=== PATIENT | male | born 2000 | race Caucasian/White ===

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

== ENCOUNTER 2022-01-29 16:43 | Emergency (ER) | payer SELFPAY ==
[2022-01-29 16:45] VITALS: BP 123/73; PULSE 75; RESP 18; TEMP 36.3; O2SAT 98
--- NOTE | 2022-01-29 17:08 | ED.GENADULT ---
HPI - General Adult General Chief complaint: Unspecified Stated complaint: sore throat Time Seen by Provider: 01/29/22 16:50 Source: RN notes reviewed History of Present Illness HPI narrative: Patient presents emergency department from home for sore throat. Patient states has sore throat for the past 5 days. Patient states is painful to swallow he denies any fevers or chills, rhinorrhea, ear pain, cough, abdominal pain nausea vomiting or any other symptoms. States he has been taking ibuprofen for the pain at home but is not taking today patient does note some swelling over the left side of his neck just underneath his jaw Related Data Allergies Allergy/AdvReac Type Severity Reaction Status Date / Time No Known Allergies Allergy Verified 01/19/22 09:14 Review of Systems Review of Systems: Gen.: Denies fevers or chills ENT: See HPI Respiratory: Denies shortness of breath or cough CV: Denies chest pain or palpitations GI: Denies abdominal pain nausea, emesis or diarrhea Musculoskeletal: Denies back pain or muscle pain Neuro: Denies numbness, tingling, weakness or focal weakness Skin: Denies rash Except as documented, all other systems reviewed and negative [facility] Past Medical History Medical History Healthy adult male Marijuana abuse Opiate abuse, episodic Surgical History Surgical History (System 01/19/22 @ 09:14 by Leander Lopez) No significant past surgical history Family History Family History (System 01/19/22 @ 09:14 by Leander Lopez) Mother Drug abuse several drug overdoses Father Family estrangement unknown medical history Sibling Alive and well 2 sisters alive and well Other Unknown family medical history Social History Social History Social History: Mr. Ortega is currently living with his friend and his friend's family. 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 He uses marijuana daily but denies any additional drug use prior to this episode. He does not smoke cigarettes or use tobacco products. He drinks alcohol episodically, every couple months. He does not have a primary care provider. He designates his mom, Tamara as his surrogate decision maker and he would like to be a full code. Smoking status: Never smoker Alcohol intake: current Alcohol use details: Episodic use; 1-2 drinks every 2-3 months, denies binge drinking Substance use: current Substance use type: marijuana Other substance usage details: Smokes marijuana almost daily; occasionally uses edibles. Gender identity (if verbalized by the patient): Male Spiritual care concerns: No Exam Narrative: APPEARANCE: No acute distress, nontoxic, resting in bed EYES: EOMI HEENT: Normocephalic, atraumatic, TMs clear bilaterally nares patent oral mucosa moist erythema the posterior pharynx and bilateral tonsils with white exudate over the bilateral tonsils uvula midline tonsils 3+ tolerating own secretions voice normal Neck: Supple there is a enlarged nontender mobile lymph node over the left submandibular region no lymphadenopathy in the RESPIRATORY: No respiratory distress Clear to auscultation bilaterally with no rhonchi wheezing or rales. CARDIOVASCULAR: Regular rate and rhythm without murmurs rubs or gallops. ABDOMINAL: Soft, nontender, nondistended, no rebound or guarding MUSCULOSKELETAl: Moves all extremities. No clubbing, cyanosis or edema. NEURO: Awake and alert. Following commands, speech normal, no focal deficits SKIN:: Warm, dry. No rashes lesions or abrasions PSYCHIATRIC: Normal affect/mood, Course Course Emergency Course: Discussed with patient results of workup and diagnosis. Discussed need for follow-up with primary care, proper use of medication, and reasons to return to the emergency department. Patient understands and agrees to current treatment p
[2022-01-29] MEDS: IBUPROFEN 600 MG TABLET PO (17:13)
[2022-01-29 17:55] LABS: Monoscreen Positive (Negative); Negative Monotest Control Negative (Negative); Positive Monotest Control Positive (Positive)
== END 2022-01-29 18:25 | disposition home or self-care (01) ==
PROVIDERS: Emergency Provider Emergency Medicine
DX: B27.90 Infectious mononucleosis, unspecified without complication (principal)
CPT/HCPCS: 36415; 86308; 87081; 87147; 99283; A9270

== ENCOUNTER 2023-01-16 01:38 | Emergency (ER) | payer OTHER, SELFPAY ==
[2023-01-16 01:41] VITALS: BP 135/70; PULSE 83; RESP 16; TEMP 37.1; O2SAT 99
--- NOTE | 2023-01-16 01:57 | ED.DENTAL ---
HPI - Dental/Oral General Chief complaint: Dental/Oral Stated complaint: abscess in mouth Time Seen by Provider: 01/16/23 01:51 History of Present Illness HPI Narrative: 22-year-old male reports for evaluation of left lower tooth ache this for yesterday. Patient reports he has chronically bad teeth and usually has tooth pain, however this acutely worsened yesterday with associated left mandibular swelling. He denies fevers, body aches or chills, difficulty swallowing, drooling. He currently does not have a dentist. Related Data Allergies Allergy/AdvReac Type Severity Reaction Status Date / Time No Known Allergies Allergy Verified 01/16/23 01:39 Review of Systems Review of Systems: CONSTITUTIONAL: Denies fever, chills EYES: Denies visual changes, redness, or discharge. ENT: See HPI CARDIOVASCULAR: Denies chest pain, palpitations, or edema. RESPIRATORY: Denies cough or dyspnea. GASTROINTESTINAL: Denies abdominal pain, nausea, vomiting, or diarrhea. GENITOURINARY: Denies dysuria or hematuria. SKIN: Denies rash or itching. MUSCULOSKELETAL: Denies back pain, joint pain, or myalgia. NEUROLOGIC: Denies headache, numbness, dizziness, or weakness. PSYCHIATRIC: Denies anxiety or depression. [facility] Past Medical History Medical History Healthy adult male Marijuana abuse Opiate abuse, episodic Surgical History Surgical History No significant past surgical history Family History Family History Mother Drug abuse several drug overdoses Father Family estrangement unknown medical history Sibling Alive and well 2 sisters alive and well Other Unknown family medical history Social History Social History Social History: Mr. Ortega is currently living with his friend and his friend's family. 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 He uses marijuana daily but denies any additional drug use prior to this episode. He does not smoke cigarettes or use tobacco products. He drinks alcohol episodically, every couple months. He does not have a primary care provider. He designates his momTamara as his surrogate decision maker and he would like to be a full code. Smoking status: Never smoker Alcohol intake: current Alcohol use details: Episodic use; 1-2 drinks every 2-3 months, denies binge drinking Substance use: current Substance use type: marijuana Other substance usage details: Smokes marijuana almost daily; occasionally uses edibles. Living arrangements: with friend(s) Gender identity (if verbalized by the patient): Male Spiritual care concerns: No Exam Narrative: GENERAL: Well-appearing, in no acute distress. He is resting comfortably in exam bed, pleasant and conversational. HEAD: Normocephalic EYES: PERRLA ENT: Nares clear. Bilateral TMs are perez nonbulging. Mucous membranes moist. Multiple caries throughout. Tooth #18 fractured with surrounding gingival and buccal mucosa swelling. No periapical abscess appreciated. 3cm area of edema overlying the L mandible, no fluctuance. Floor of mouth is soft and without crepitus. Patient tolerating secretions. No submandibular swelling. NECK: Supple. CHEST: No respiratory distress. Clear to auscultation, no adventitious breath sounds. HEART: Regular rate and rhythm. No murmur heard. Normal peripheral pulses. EXTREMITIES: Normal range of motion. No edema. SKIN: Warm, dry, no rash. NEURO: No focal deficits. Alert and oriented x3. PSYCH: Normal mood and affect. Course Vital Signs Vital signs: Vital Signs Temperature 98.7 F 01/16/23 01:41 Pulse Rate 83 01/16/23 01:41 Respiratory Rate 16 01/16/23 01:41 Blood Pressure 135/70 01/16/23 01:41 Puls
[2023-01-16] MEDS: AMOXICILLIN/CLAVULANATE K 875-125 MG TAB 1 TABLET PO (02:14)
[2023-01-16] MEDS: HYDROcodone/acetaminophen (*CRX) 5-325 MG TABLET 1 TAB PO (02:15)
== END 2023-01-16 02:18 | disposition home or self-care (01) ==
PROVIDERS: Emergency Provider Physician Assistant
DX: K08.89 Other specified disorders of teeth and supporting structures (principal); K03.81 Cracked tooth
CPT/HCPCS: 99283; A9270

== ENCOUNTER 2023-11-18 13:52 | Emergency (ER) | payer SELFPAY ==
--- NOTE | ~2023-11-18 | XR_ITS ---
EXAMINATION: XR chest 2V DATE: 11/18/2023 14:12 INDICATION: Cough. Congestion. TECHNIQUE: Frontal and lateral views of the chest were obtained. COMPARISON: Chest single view 04/22/2020 FINDINGS: There is no pneumonia, pleural effusion, or pneumothorax. The heart size is normal. IMPRESSION: 1. No acute cardiopulmonary disease. Reviewed, dictated and finalized at location E.
[2023-11-18 13:53] VITALS: BP 125/76; PULSE 89; RESP 18; TEMP 36.5; O2SAT 97
--- NOTE | 2023-11-18 14:03 | ED.URI ---
HPI - URI/Sore Throat General Chief Complaint: Upper Respiratory Infection Stated Complaint: cough for 2 months Time Seen by Provider: 11/18/23 13:52 Source: patient Mode of arrival: ambulatory Limitations: no limitations History of Present Illness HPI Narrative: Barry is a 23-year-old male patient presenting to the emergency room today with for complaints of a cough x2 months. He reports over the past few days he has noticed some blood tender state in his sputum. States the sputum is green. Does vape but denies any alcohol use. He denies any fever or chills. Denies any chest pain or shortness of breath. History of drug abuse. MD elicited complaint: cough, rhinorrhea, nasal congestion and sinus pain Related Data Allergies Allergy/AdvReac Type Severity Reaction Status Date / Time No Known Allergies Allergy Verified 11/18/23 14:32 Review of Systems Review of Systems: Pertinent positives per HPI. Patient denies any fever, chills, rash, headache, visual changes, dizziness,shortness of breath, chest pain, palpitations, nausea, vomiting, diarrhea, constipation, abdominal pain, or any urinary issues. [facility] Past Medical History Medical History Healthy adult male Marijuana abuse Opiate abuse, episodic Surgical History Surgical History No significant past surgical history Family History Family History Mother Drug abuse several drug overdoses Father Family estrangement unknown medical history Sibling Alive and well 2 sisters alive and well Other Unknown family medical history Social History Social History Social History: Mr. Ortega is currently living with his friend and his friend's family. 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 He uses marijuana daily but denies any additional drug use prior to this episode. He does not smoke cigarettes or use tobacco products. He drinks alcohol episodically, every couple months. He does not have a primary care provider. He designates his mom, Tamara as his surrogate decision maker and he would like to be a full code. Smoking status: Never smoker Alcohol intake: current Alcohol use details: Episodic use; 1-2 drinks every 2-3 months, denies binge drinking Substance use: current Substance use type: marijuana Other substance usage details: Smokes marijuana almost daily; occasionally uses edibles. Living arrangements: with friend(s) Gender identity (if verbalized by the patient): Male Spiritual care concerns: No Comments At the time of my signature, I reviewed and agree with the nursing past medical, surgical, social, and family history. There is no relevant family history pertinent to the patient complaint. Exam Narrative: General: Well-developed, well nourished, in no apparent distress Head: Normocephalic, atraumatic Eyes: Pupils equally round and reactive to light bilaterally, EOM intact, sclera and conjunctive clear, no discharge, lids normal Ears: TMs intact and clear, ear canals clear, no drainage, grossly hearing normal. Nose: Nares patent, green nasal discharge, severe inflammation, maxillary and frontal sinus tenderness. Mouth: Oral pharynx without lesions or masses, good dentition, MMM. Postnasal drip Neck: Supple, trachea midline, no enlargement of anterior or posterior cervical nodes, no thyroid masses or goiter palpable. Cardio: Regular rate and rhythm, s1 and s2 normal, no murmur appreciated. Resp: Clear to auscultation bilaterally, no rhonchi, rales, wheezing or rubs Course Course Emergency Course: Portions of this record may have been created with voice recognition software. Vital Signs Vital signs: Vital Signs Temperature
[2023-11-18 14:30] VITALS: O2SAT 98
== END 2023-11-18 14:50 | disposition home or self-care (01) ==
PROVIDERS: Emergency Provider Nurse Practitioner Family
DX: J01.90 Acute sinusitis, unspecified (principal); B96.89 Other specified bacterial agents as the cause of diseases classified elsewhere; F17.200 Nicotine dependence, unspecified, uncomplicated
CPT/HCPCS: 71046; 99283

== ENCOUNTER 2023-11-23 15:17 | Emergency (ER) | payer SELFPAY ==
[2023-11-23 15:18] VITALS: BP 119/92; PULSE 74; RESP 16; TEMP 36.2; O2SAT 100
--- NOTE | 2023-11-23 16:36 | ED.EYEPROB ---
HPI - Eye Problem General Chief complaint: Eye Problems <Trudi Ring PA-C - Last Filed: 11/23/23 16:39> Stated complaint: left eye injury <Trudi Ring PA-C - Last Filed: 11/23/23 16:39> Time Seen by Provider: 11/23/23 17:30 <Trudi Ring PA-C - Last Filed: 11/23/23 16:39> Focused HPI: 23 y/o M presents to the ED for a burn to the lateral aspect of his eye. States last night he lit incense, put the stick in a whole in the wall which was at eye level, turned the light off an ran into the incense. He is unsure if the incense touches his globe, but is reporting some discomfort to the lateral eyeball. Has been using Vaseline topically. Tdap up to date per pt. GENERAL: Well-appearing, well-nourished, and in no acute distress. HEAD: Normocephalic, atraumatic. CHEST: Clear to auscultation. ?No respiratory distress. HEART: Regular rate and rhythm.? SKIN: burn to the lateral aspect of the eye with a yellow plaque and surrounding erythema NEURO: ?Alert and oriented x3. Patient screened in triage and initial orders placed.? ?Additional care and disposition to be based upon?diagnostic testing and treatment. <Trudi Ring PA-C - Last Filed: 11/23/23 16:39> Focused HPI: 23 y/o M presents to the ED for a burn to the lateral aspect of his eye. States last night he lit incense, put the stick in a hole in the wall which was at eye level, turned the light off an ran into the incense. He is unsure if the incense touches his globe, but is reporting some discomfort to the lateral eyeball. Has been using Vaseline topically. Tdap up to date per pt. GENERAL: Well-appearing, well-nourished, and in no acute distress. HEAD: Normocephalic, atraumatic. CHEST: Clear to auscultation. ?No respiratory distress. HEART: Regular rate and rhythm.? SKIN: burn to the lateral aspect of the eye with a yellow plaque and surrounding erythema NEURO: ?Alert and oriented x3. Patient screened in triage and initial orders placed.? ?Additional care and disposition to be based upon?diagnostic testing and treatment. <Gabby Gates PA-C - Last Filed: 11/23/23 21:33> Source: patient <Gabby Gates PA-C - Last Filed: 11/23/23 21:33> Mode of arrival: ambulatory <Gabby Gates PA-C - Last Filed: 11/23/23 21:33> Limitations: no limitations <Gabby Gates PA-C - Last Filed: 11/23/23 21:33> History of Present Illness HPI Narrative: Agree with above HPI. Denies vision changes or vision loss. <Gabby Gates PA-C - Last Filed: 11/23/23 21:33> Related Data Allergies/adverse reactions: Allergies Allergy/AdvReac Type Severity Reaction Status Date / Time No Known Allergies Allergy Verified 11/18/23 14:32 <Trudi Ring PA-C - Last Filed: 11/23/23 16:39> Review of Systems Review of Systems: CONSTITUTIONAL: Denies fever, chills, or sweats. EENT: See HPI. SKIN: See HPI NEUROLOGIC: Denies headache, dizziness, numbness, or weakness. <Gabby Gates PA-C - Last Filed: 11/23/23 21:33> All systems reviewed & are unremarkable except as noted in HPI and below <Gabby Gates PA-C - Last Filed: 11/23/23 21:33> PMF[facility] Past Medical History Medical History: Medical History Healthy adult male Marijuana abuse Opiate abuse, episodic <Trudi Ring PA-C - Last Filed: 11/23/23 16:39> Surgical History Surgical History: Surgical History No significant past surgical history <Trudi Ring PA-C - Last Filed: 11/23/23 16:39> Family History Family History: Family History Mother Drug abuse several drug overdoses Father Family estrangement unknown medical history Sibling Alive and well 2 sisters alive and well Other Unknown fam
[2023-11-23 17:44] VITALS: BP 115/71; PULSE 81; RESP 16; O2SAT 100
--- NOTE | 2023-11-23 19:10 | ED.EYEPROB ---
HPI - Eye Problem General Chief complaint: Eye Problems Stated complaint: left eye injury Time Seen by Provider: 11/23/23 17:30 Related Data Allergies Allergy/AdvReac Type Severity Reaction Status Date / Time No Known Allergies Allergy Verified 11/18/23 14:32 [facility] Past Medical History Medical History Healthy adult male Marijuana abuse Opiate abuse, episodic Surgical History Surgical History No significant past surgical history Family History Family History Mother Drug abuse several drug overdoses Father Family estrangement unknown medical history Sibling Alive and well 2 sisters alive and well Other Unknown family medical history Social History Social History Social History: Mr. Ortega is currently living with his friend and his friend's family. 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 He uses marijuana daily but denies any additional drug use prior to this episode. He does not smoke cigarettes or use tobacco products. He drinks alcohol episodically, every couple months. He does not have a primary care provider. He designates his mom, Tamara as his surrogate decision maker and he would like to be a full code. Smoking status: Never smoker Alcohol intake: current Alcohol use details: Episodic use; 1-2 drinks every 2-3 months, denies binge drinking Substance use: current Substance use type: marijuana Other substance usage details: Smokes marijuana almost daily; occasionally uses edibles. Living arrangements: with friend(s) Gender identity (if verbalized by the patient): Male Spiritual care concerns: No Course Vital Signs Vital signs: Vital Signs Temperature 97.2 F L 11/23/23 15:18 Pulse Rate 74 11/23/23 15:18 Respiratory Rate 16 11/23/23 15:18 Blood Pressure 119/92 H 11/23/23 15:18 Pulse Oximetry 100 11/23/23 15:18 Oxygen Delivery Room Air 11/23/23 15:18 Temperature 97.2 F L 11/23/23 15:18 Pulse Rate 81 11/23/23 17:44 Respiratory Rate 16 11/23/23 17:44 Blood Pressure 115/71 11/23/23 17:44 Pulse Oximetry 100 11/23/23 17:44 Oxygen Delivery Room Air 11/23/23 15:18 Discharge Plan Discharge Clinical Impression: Irritation of left eye Burn of left periorbital region Qualifiers: Encounter type: initial encounter Qualified Code(s): T26.02XA - Burn of left eyelid and periocular area, initial encounter Patient Disposition: Home, Self-Care Condition: Stable Instructions: Antibiotic Form, Superficial Burn (ED), Conjunctivitis (ED) Additional Instructions: Utilize antibiotic eyedrops as prescribed. Continue to apply Vaseline and/or bacitracin to superficial burn on the outer eye. Follow-up with your primary care doctor or Ophthalmology for further evaluation if needed. Return to the ED if you experience worsening or severe pain, redness in eye, vision changes or vision loss, recurrent injury, or any other symptoms of concern. Prescriptions: New ofloxacin 0.3 % drops 2 drp LEFT EYE QID 5 Days Qty: 5 0RF bacitracin 500 unit/gram ointment 1 applic topical TID PRN (Reason: skin irritation) Qty: 14 0RF No Action ibuprofen 600 mg tablet 600 mg PO TID PRN (Reason: pain) Qty: 14 0RF amoxicillin-pot clavulanate 875-125 mg tablet 1 tablet PO Q12H Qty: 14 0RF prednisone 20 mg tablet 40 mg PO DAILY 5 Days Qty: 10 0RF amoxicillin-pot clavulanate 875-125 mg tablet 1 tablet PO Q12H 10 Days Qty: 20 0RF Follow-up/Referrals: Christopher Bowens [Outside] Christopher Villatoro [Outside] PHYSICIAN,RECOVERY MANAGER [Non-Staff] - Time of Disposition: 19:18
== END 2023-11-23 19:33 | disposition home or self-care (01) ==
PROVIDERS: Emergency Provider Physician Assistant
DX: T26.02XA Burn of left eyelid and periocular area, initial encounter (principal); H57.89 Other specified disorders of eye and adnexa; X19.XXXA Contact with other heat and hot substances, initial encounter
CPT/HCPCS: 99283

== ENCOUNTER 2024-08-29 12:12 | Emergency (ER) | payer SELFPAY ==
--- NOTE | ~2024-08-29 | CT_ITS ---
EXAMINATION: CT abdomen pelvis w con DATE: 08/29/2024 13:42 INDICATION: Left flank pain. TECHNIQUE: Computed tomography (CT) of the abdomen and pelvis was performed with 100 mL Omnipaque 350 intravenous contrast. Automated exposure control and iterative reconstruction technique were employe d. The dose-length product was 192.54 mGy-cm. COMPARISON: None. FINDINGS: The visualized portions of the lung bases demonstrate mild atelectasis in the right. No ple ural effusion. The heart size is normal. No pericardial effusion. The liver, gallbladder, spleen, cisneros creas, adrenal glands, and kidneys are normal. There are no dilated loops of bowel. The appendix is n ot visualized. There are no pathologically enlarged lymph nodes. There is no free intraperitoneal flu id. The bones are unremarkable. IMPRESSION: 1. No etiology for the patient's symptoms. Reviewed, dictated and finalized at location B. RIAL DAMAGE ADJUSTER
[2024-08-29 12:12] VITALS: BP 116/76; PULSE 67; RESP 16; TEMP 36.4; O2SAT 99
--- OUTSIDE RECORDS SUMMARY | 2024-08-29 12:14 | XMS_ITS | Clinical Summary ---
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 Gender Identity Not on file Sexual Orientation Not on file Plan of Treatment Health Maintenance Due Date Last Done Comments Hepatitis C Virus (HCV) Screening 2001 Meningococcal B Immunization (1 of 2 - Standard) 2017 Influenza Immunization (#1) 2024 04/22/2020, 1 SARS-COV-2 Immunization ( season) 2024 Respiratory Syncytial Virus (RSV) Immunization (Adult) (1 - 1-dose 75+ series) 2076 Hepatitis B Immunization Completed 005, 03/07/2002, 2001, Additional history exists Pneumococcal Immunization Combined Aged Out 03/13/2005, 2001, 2001 No longer eligible based on patient's age to complete this topic DTaP/Tdap/Td Immunization Discontinued 2012, 06/17/2007, 03/13/2005, Additional history exists Meningococcal Immunization (ACWY) Aged Out 04/17/2013 No longer eligible based on patient's age to complete this topic TdaP Immunization Completed 04/17/2013 Human Papillomavirus (HPV) Immunization Completed 02/28/2016, 04/17/2013 Rotavirus Immunization Aged Out No lo nger eligible based on patient's age to complete this topic
--- OUTSIDE RECORDS SUMMARY | 2024-08-29 12:38 | XMS_ITS | Clinical Summary ---
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
--- NOTE | 2024-08-29 12:39 | ED.NAVMDI ---
HPI - Nausea/Vomiting/Diarrhea General Chief complaint: Nausea/Vomiting/Diarrhea Stated complaint: vomiting, sharp pains in my kidney Time Seen by Provider: 08/29/24 12:39 Source: patient Mode of arrival: ambulatory Limitations: no limitations History of Present Illness HPI Narrative: 24 YEARS OLD WHITE FEMALE CAME TO THE ED BY PRIVATE CAR COMPLAINING OF SHARP STABBING PAIN AT THE LEFT UPPER QUADRANT FOR THE LAST 1 AND HAVE YEAR, INTERMITTENT, GETS BETTER ON PERCOCET, GET WORSE IF YOU RUN OUT OF PERCOCET. HE DENIES ANY FEVER CHILLS, NAUSEA, VOMITING, DIARRHEA, CONSTIPATION OR URINARY SYMPTOMS. PATIENT HAVE A PHYSICAL JOB. AND WOULD LIKE TO GET OF WORK TOMORROW. Related Data Allergies Allergy/AdvReac Type Severity Reaction Status Date / Time No Known Allergies Allergy Verified 11/18/23 14:32 Review of Systems Review of Systems: All systems reviewed & are unremarkable except as noted in HPI and below PMFSH Past Medical History Medical History Marijuana abuse Opiate abuse, episodic Healthy adult male Surgical History Surgical History No significant past surgical history Family History Family History Mother Drug abuse several drug overdoses Father Family estrangement unknown medical history Sibling Alive and well 2 sisters alive and well Other Unknown family medical history Social History Social History Social History: Mr. Ortega is currently living with his friend and his friend's family. 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 He uses marijuana daily but denies any additional drug use prior to this episode. He does not smoke cigarettes or use tobacco products. He drinks alcohol episodically, every couple months. He does not have a primary care provider. He designates his mom, Tamara as his surrogate decision maker and he would like to be a full code. Smoking status: Never smoker Alcohol intake: current Alcohol use details: Episodic use; 1-2 drinks every 2-3 months, denies binge drinking Substance use: current Substance use type: marijuana Other substance usage details: Smokes marijuana almost daily; occasionally uses edibles. Living arrangements: with friend(s) Gender identity (if verbalized by the patient): Male Spiritual care concerns: No Exam Narrative: GENERAL APPEARANCE: WELL-DEVELOPED, WELL-NOURISHED SKIN: NORMAL COLOR HEAD: NORMOCEPHALIC, NONTRAUMATIC EYES: CLEAR CONJUNCTIVA ENT: OROPHARYNX NORMAL, EARS NORMAL, NOSE NORMAL NECK: SUPPLE, NONTENDER CHEST AND RESPIRATORY: AIRWAY PATENT, NO RESPIRATORY DISTRESS, NO ACCESSORY MUSCLE USE HEART: REGULAR RATE/RHYTHM ABDOMEN: SOFT, SLIGHT TENDERNESS LEFT UPPER QUADRANT, NO BRUISES, NO SWELLING OR RASH, NO ORGANOMEGALY, QUIET BOWEL SOUNDS VASCULAR: NORMAL PERIPHERAL PULSES, NORMAL CAPILLARY REFILL. 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 TESTED, NO GROSS MOTOR DEFICIT Course Vital Signs Vital signs: Vital Signs Temperature 36.4 C 08/29/24 12:12 Pulse Rate 67 08/29/24 12:12 Respiratory Rate 16 08/29/24 12:12 Blood Pressure 116/76 08/29/24 12:12 Pulse Oximetry 99 08/29/24 12:12 Oxygen Delivery Room Air 08/29/24 12:12 Temperature 36.4 C 08/29/24 12:12 Pulse Rate 60 08/29/24 13:22 Respiratory Rate 16 08/29/24 13:22 Blood Pressure 121/83 08/29/24 13:22 Pulse Oximetry 98 08/29/24 13:22 Oxygen Delivery Room Air 08/29/24 12:12 MDM - Nausea/Vomiting/Diarrhea MDM Narrative Medical decision making narrative: PATIENT PRESENTS WITH NAUSEA VOMITING AND LEFT FLANK PAIN VITAL SIGNS ARE STABLE PHYSICAL EXAMINATION SHOWING SLIGHT TENDERNESS LEFT FLANK AREA OTHERWISE WITHIN NORMAL LIMIT DIFFERENTIAL DIAGNOSIS INCLUDE VIRAL INFECTION, GASTRITIS, ESOPHAGITIS, URINARY TRACT INFECTION, CONSTIPATION BLOOD WORKUP TODAY SEEKING CMP, LIPASE SHOWED WBC 14.2, OTHERWISE WITHIN NORMAL LIMIT URINALYSIS SHOWED NO SIGNS OF INFECTION PATIENT TESTED NEGATIVE FOR COVID, FLU AND RSV CT ABDOMEN AND PELVIS WITH IV CONTRAST SHOWED NO ACUTE ABNORMALITIES. Lab Data 08/29/24 13:04 08/29/24 13:04 Labs: Lab Results 08/29/24 08/29/24 Range/Units 13:04 13:28 WBC 14.2 H (4.5-10.0) K/mm3 RBC 5.10 (4.6-6.20) M/mm3 Hgb 15.7 (14.0-18.0) g/dL Hct 46.3 (42.0-52.0) % MCV 90.8 (80-100) fl MCH 30.8 (26-34) pg MCHC 33.9 (32-36) g/dl RDW 11.9 (11.5-14.5) % Plt Count 289 (150-375) k/mm3 MPV 9.0 (7.4-10.4) fl Immature Gran % (Auto) 0.2 (0-0.5) % Neut % (Auto) 91.5 H (45.5-73.1) % Lymph % (Auto) 3.9 L (18.3-44.2) % [place] % (Auto) 3.2 (2.6-8.5) % Eos % (Auto) 0.9 (0-4.4) % Baso % (Auto) 0.3 (0.2-1.2) % Lymph # (Auto) 0.56 L (0.9-3.2) K/mm3 [place] # (Auto) 0.5 (0.1-0.6) K/mm3 Eos # (Auto) 0.1 (0-0.3) K/mm3 Baso # (Auto) 0.0 (0.0-0.1) K/mm3 Abs Immat Gran (auto) 0.03 (0.00-0.031) K/mm3 Absolute Neuts (auto) 13.0 H (1.3-6.7) K/mm3 Absolute Nucleated RBC 0.000 (0.0-0.012) K/mm3 Nucleated RBC % 0.0 (0.0-0.2) % Sodium 140 (137-145) mmol/L Potassium 4.2 (3.4-5.0) mmol/L Chloride 105 (98-107) mmol/L Carbon Dioxide 24 (22-30) mmol/L Anion Gap 11 (4-12) mmol/L BUN 18 (9-20) mg/dL Creatinine 0.53 L (0.7-1.3) mg/dL Estim Creat Clear Calc 134 ml/min Estimated GFR > 60 (59 - ) Glucose 104 (65-110) mg/dL Calcium 10.1 (8.4-10.2) mg/dL Total Bilirubin 1.0 (0.2-1.3) mg/dL AST 21 (17-59) U/L ALT 16 (6-50) U/L Alkaline Phosphatase 64 (38-126) U/L Total Protein 8.0 (6.3-8.2) g/dL Albumin 5.0 (3.5-5.1) g/dL Lipase 44 (23-300) U/L Urine Color Dark yellow (Yellow) Urine Appearance Clear (Clear) Urine pH 5.5 (5.0-9.0) Ur Specific [place] 1.031 (1.001-1.035) Urine Protein Trace (Negative) mg/dL Urine Glucose (UA) Negative (Negative) mg/dL Urine Ketones Trace H (Negative) mg/dL Ur Blood (Man) Negative (Negative) Urine Nitrate Negative (Negative) Urine Bilirubin Negative (Negative) Urine Urobilinogen 0.2 (<2.0) mg/dL Leukocyte Esterase Rfl Negative (Negative) RADHA/UL Urine RBC 0-2 (0-2) /hpf Urine WBC 0-5 (0-3) /hpf Ur Squamous Epith Cells None seen (Few) /hpf Urine Bacteria None seen /hpf Urine Casts 0-2 Influenza A (RT-PCR) Negative (Negative) Influenza B (RT-PCR) Negative (Negative) RSV (RT-PCR) Negative (Negative) SARS-CoV-2 RNA (RT-PCR) Negative (Negative) Critical Care Time Critical Care Time Critical Care Time: No Discharge Plan Discharge Clinical Impression: Abdominal pain Patient Disposition: Home, Self-Care Condition: Stable Instructions: Abdominal Pain (ED) Additional Instructions: RETURN IF SYMPTOMS ARE WORSENING , CALL YOUR FAMILY PHYSICIAN FOR APPOINTMENT, TAKE TYLENOL NEEDED FOR ACHES AND PAIN, CONTINUE HOME MEDICATIONS. Patient Language: Citizen Of [place] Prescriptions: New naproxen [Naprosyn] 500 mg tablet 500 mg PO BID PRN (Reason: pain) Qty: 14 0RF ondansetron 4 mg tablet,disintegrating 4 mg PO Q4H 3 Days Qty: 18 0RF Rx Instructions: 1st dose 1-2 hr before radiation No Action ibuprofen 600 mg tablet 600 mg PO TID PRN (Reason: pain) Qty: 14 0RF amoxicillin-pot clavulanate 875-125 mg tablet 1 tablet PO Q12H Qty: 14 0RF ofloxacin 0.3 % drops 2 drp LEFT EYE QID 5 Days Qty: 5 0RF bacitracin 500 unit/gram ointment 1 applic topical TID PRN (Reason: skin irritation) Qty: 14 0RF prednisone 20 mg tablet 40 mg PO DAILY 5 Days Qty: 10 0RF amoxicillin-pot clavulanate 875-125 mg tablet 1 tablet PO Q12H 10 Days Qty: 20 0RF Follow-up/Referrals: UNKNOWN,DOCTOR [Primary Care Provider] - Stand Alone Forms: Work/School Release IP
[2024-08-29 13:13] LABS: Basophils Percent Auto 0.3 % (0.2-1.2); Eosinophils Absolute Auto 0.1 K/mm3 (0-0.3); Eosinophils Percent Auto 0.9 % (0-4.4); Hematocrit 46.3 % (42.0-52.0); Hemoglobin 15.7 g/dL (14.0-18.0); Immature Granulocyte Absolute 0.03 K/mm3 (0.00-0.031); Immature Granulocyte Percent A 0.2 % (0-0.5); Lymphocytes Absolute Auto 0.56 K/mm3 (0.9-3.2); Lymphocytes Percent Auto 3.9 % (18.3-44.2); Mean Corpuscular HGB Conc 33.9 g/dl (32-36); Mean Corpuscular Hemoglobin 30.8 pg (26-34); Mean Corpuscular Volume 90.8 fl (80-100); Monocytes Absolute Auto 0.5 K/mm3 (0.1-0.6); Monocytes Percent Auto 3.2 % (2.6-8.5); Neutrophils Percent Auto 91.5 % (45.5-73.1); Platelet Count Result 289 k/mm3 (150-375); Red Cell Distribution Width 11.9 % (11.5-14.5); White Blood Count 14.2 K/mm3 (4.5-10.0)
[2024-08-29] MEDS: ONDANSETRON INJ 4 MG/2 ML VIAL IV PUSH (13:16)
[2024-08-29 13:22] VITALS: BP 121/83; PULSE 60; RESP 16; O2SAT 98
[2024-08-29 13:25] LABS: Alanine Aminotransferase 16 U/L (6-50); Alkaline Phosphatase 64 U/L (38-126); Anion Gap 11 mmol/L (4-12); Aspartate Amino Transferase 21 U/L (17-59); Blood Urea Nitrogen 18 mg/dL (9-20); Calcium 10.1 mg/dL (8.4-10.2); Carbon Dioxide 24 mmol/L (22-30); Chloride 105 mmol/L (98-107); Estimated CRCL calculation 134 ml/min; Estimated Glomerular Filt Rate > 60; Glucose 104 mg/dL (65-110); Lipase 44 U/L (23-300); Potassium 4.2 mmol/L (3.4-5.0); Sodium 140 mmol/L (137-145)
[2024-08-29] MEDS: SODIUM CHLORIDE 0.9% IV 1,000 ML 999 ML IV CONT (13:25)
[2024-08-29 13:49] LABS: Add Urine Microscopic? YES; Appearance Urine Clear (Clear); Bacteria Urine None Seen /hpf; Bilirubin Urine Negative (Negative); Blood Urine Negative (Negative); Color Urine Dark Yellow (Yellow); Glucose Urine UA Negative (Negative); Ketones Urine Trace mg/dL (Negative); Leukocyte Esterase Ur Negative LEU/UL (Negative); Nitrate Urine Negative (Negative); Non Pathogenic Casts 0-2; Protein Urine Trace mg/dL (Negative); RBC Urine 0-2 /hpf (0-2); Specific Grav Ur 1.031 (1.001-1.035); Squamous Epithelial Cell Urine None Seen /hpf (Few); Urobilinogen Urine 0.2 mg/dL (<2.0); WBC Urine 0-5 /hpf (0-3); pH Urine 5.5 (5.0-9.0)
[2024-08-29 14:24] LABS: Influenza A QL RT-PCR Negative (Negative); Influenza B QL RT-PCR Negative (Negative); RSV RNA, RT-PCR Negative (Negative); SARS-CoV-2 RNA PCR Negative (Negative)
[2024-08-29 15:25] VITALS: BP 115/79; PULSE 67; RESP 14; TEMP 36.7; O2SAT 100
== END 2024-08-29 15:36 | disposition home or self-care (01) ==
PROVIDERS: Emergency Provider Emergency Medicine
DX: R10.12 Left upper quadrant pain (principal); Z20.822 Contact with and (suspected) exposure to COVID-19
CPT/HCPCS: 36415; 74177; 80053; 81001; 83690; 85025; 87637; 96361; 96374; 99284; J2405; J7030; Q9967